=== PATIENT | female | born 1980 | race Caucasian/White ===

== ENCOUNTER 2016-11-27 21:42 | Emergency (ER) | payer OTHER ==
[2016-11-27 21:59] VITALS: BP 113/72; PULSE 75; RESP 16; TEMP 98.3; O2SAT 100
--- NOTE | 2016-11-27 22:25 | ED PDOC ---
HPI: Abdomen Time Seen by Provider: 11/27/16 22:08 Chief Complaint (Nursing): Abdominal Pain Chief Complaint (Provider): abdominal pain History Per: Patient History/Exam Limitations: no limitations Onset/Duration Of Symptoms: Days (1) Current Symptoms Are (Timing): Still Present Location Of Pain/Discomfort: RLQ, Suprapubic Quality Of Discomfort: Cramping Associated Symptoms: denies: Fever, Chills, Nausea, Vomiting, Diarrhea, Urinary Symptoms Additional History Per: Patient Additional Complaint(s): 36 y/o female, approx 17 weeks gestation, presents with right lower abdominal cramping x 1 day. Denies fever, nausea/vomiting, chest pain, changes in bowel movements, vaginal bleeding/discharge, dysuria, hematuria. Abnormal Vaginal Bleeding: No Last Menstral Period: 08/04/16 : 3 Para: 2 Miscarriage: 0 Past Medical History Reviewed: Historical Data, Nursing Documentation, Vital Signs Vital Signs: Last Vital Signs Temp 98.3 F 11/27/16 21:54 Pulse 75 11/27/16 21:54 Resp 16 11/27/16 21:54 BP 113/72 11/27/16 21:54 Pulse Ox 100 11/28/16 00:40 - Medical History PMH: No Chronic Diseases - Surgical History Surgical History: No Surg Hx - Family History Family History: States: Unknown Family Hx - Allergies Allergies/Adverse Reactions: Allergies Allergy/AdvReac Type Severity Reaction Status Date / Time No Known Allergies Allergy Verified 11/27/16 21:54 Review of Systems ROS Statement: Except As Marked, All Systems Reviewed And Found Negative Gastrointestinal: Positive for: Abdominal Pain Physical Exam - Reviewed Nursing Documentation Reviewed: Yes Vital Signs Reviewed: Yes - Physical Exam Appears: Positive for: Well, Non-toxic, No Acute Distress Head Exam: Positive for: ATRAUMATIC, NORMAL INSPECTION, NORMOCEPHALIC Skin: Positive for: Normal Color Eye Exam: Positive for: Normal appearance ENT: Positive for: Normal ENT Inspection Cardiovascular/Chest: Positive for: Regular Rate, Rhythm Respiratory: Positive for: Normal Breath Sounds Gastrointestinal/Abdominal: Positive for: Bowel Sounds, Soft, Tenderness (right lower pelvic, suprapubic. negative psoas, negative obturaor). Negative for: Distended, Guarding, Rebound Back: Positive for: Normal Inspection Extremity: Positive for: Normal ROM Neurologic/Psych: Positive for: Alert, Oriented - Laboratory Results Result Diagrams: 11/27/16 22:24 11/27/16 22:30 - ECG O2 Sat by Pulse Oximetry: 100 - Progress ED Course And Treament: labs urine, u/s EXAM: US After First Trimester, Transabdominal CLINICAL HISTORY: 36 years old, female; Pain; Other: Pelvic; Gestational age or lmp: 08/04/16; ; Additional info: 17 weeks preg, right pelvic cramping TECHNIQUE: Real-time transabdominal obstetrical ultrasound of the maternal pelvis and a second or third trimester with image documentation. COMPARISON: No relevant prior studies available. FINDINGS: Fetus: Single live intrauterine gestation. Heart rate: heart rate of 144 beats per minute. Presentation: Breech. Placenta: Anterior fundal placenta. No placenta previa or abruption. Amniotic fluid: Normal. Anatomy: No gross anomaly is appreciated. BIOMETRICS Gestational age by US: Estimated gestational age of 18 weeks 1 day by measurements. EFW: Estimated weight of 214 g. BPD: 4.1 cm, correlating with 18 weeks 4 days. HC: 14.8 cm, correlating with 18 weeks 0 days. AC: 11.8 cm, correlating with 17 weeks 4 days. FL: 2.7 cm, correlating with 18 weeks 1 day. MATERNAL: Uterus: Few uterine masses, largest measuring 3.6 x 3.1 x 3.8 cm. Cervix: No cervical dilatation or effacement. Adnexa: RIGHT ovary: Normal. LEFT ovary: Not visualized. No adnexal masses. Free fluid: No significant free fluid. IMPRESSION: 1. Single live intrauterine gestation. 2. Probable fibroid uterus. 3. Incidental/non-acute findings are described above. EXAM: US Abdomen Limited, Appendix CLINICAL HISTORY: 36 years old, female; Pain; Other: Rlq; ; Additional info: Attn rlq TECHNIQUE: Real-time ultrasound of the right lower quadrant with image documentation. COMPARISON: No relevant prior studies available. FINDINGS: Appendix: Not visualized. Free fluid: No significant free fluid. Lymph nodes: 2.1 x 0.5 x 0.9 cm RIGHT lower quadrant lymph node. IMPRESSION: 1. Nonvisualization of appendix. 2. Incidental/non-acute findings are described above. On re-eval, patient sleeping; upon awakening states pain stable. Denies nausea/ vomiting, changes in appetite. Case discussed with Dr. Jesus, patients Junior Paralegal; who feels pain related to fibroid uterus. Dr. Jesus recommends discharge with return precautions, and follow up in office. Patient educated on findings, discharged with instructions to follow up OB this week. Patient given strict instructions to return to ED for fever, nausea/vomiting, worsening right lower quadrant pain, or other concerning symptoms. Advised Tylenol PRN pain. Patient/ demonstrate full understanding. Disposition - Clinical Impression Clinical Impression: Abdominal pain during , Uterine fibroid - Patient ED Disposition Is Patient to be Admitted: No Counseled Patient/Family Regarding: Studies Performed, Diagnosis, Need For Followup - Disposition Disposition: Routine/Home Disposition Time: 00:34 Condition: IMPROVED Additional Instructions: Call Dr. Jesus's office tomorrow regarding follow up. Take Tylenol as directed, as needed for pain. Return to ED for fever, nausea/vomiting, worsening right lower pain, or other concerning symptoms. Instructions: Uterine Fibroids (ED), Abdominal Pain in (ED)
[2016-11-27 22:37] LABS: BASO # 0.1 K/uL (0.0-0.2); BASO % 0.6 % (0.0-2.0); EOS # 0.1 K/uL (0.0-0.7); HEMATOCRIT 32.8 % (34.0-47.0); LYMPH # 2.1 K/uL (1.0-4.3); MEAN CELL VOLUME 90.5 fl (81.0-99.0); MEAN CORPUSCULAR HGB CONC 34.2 g/dL (33.0-37.0); MEAN PLATELET VOLUME 9.4 fl (7.2-11.7); MONO # 0.8 K/uL (0.0-0.8); MONO % 5.4 % (0.0-10.0); RED CELL DISTRIBUTION WIDTH 12.7 % (11.5-14.5); WHITE BLOOD COUNT 14.1 K/uL (4.8-10.8)
[2016-11-27 22:44] LABS: RBC URINE 3 /hpf (0-3); URINE BACTERIA FEW (<OCC); URINE BILIRUBIN NEGATIVE (NEGATIVE); URINE BLOOD SMALL (NEGATIVE); URINE COLOR STRAW (YELLOW); URINE GLUCOSE (UA) NEG (Normal); URINE KETONE NEGATIVE (NEGATIVE); URINE LEUKOCYTE ESTERASE NEG Leu/uL (Negative); URINE PROTEIN NEGATIVE (NEGATIVE); URINE UROBILINOGEN 0.2-1.0 mg/dL (0.2-1.0); WBC URINE 1 /hpf (0-5)
[2016-11-27 22:59] LABS: ALB/GLOB RATIO 1.2 (1.0-2.1); ALKALINE PHOSPHATASE 65 U/L (38-126); ALT/SGPT 50 U/L (9-52); AST/SGOT 23 U/L (14-36); BILIRUBIN,TOTAL 0.3 mg/dl (0.2-1.3); BLOOD UREA NITROGEN 10 mg/dl (7-17); CARBON DIOXIDE 21 mmol/L (22-30); CHLORIDE 104 mmol/L (98-107); GFR AFRICAN-AMERICAN > 60; GLUCOSE,RANDOM 98 mg/dL (65-105); POTASSIUM 3.5 MMOL/L (3.6-5.0); SODIUM 136 mmol/l (132-148); TOTAL PROTEIN 6.7 G/DL (6.3-8.2)
--- NOTE | 2016-11-27 23:53 | US ---
EXAM: US Abdomen Limited, Appendix CLINICAL HISTORY: 36 years old, female; Pain; Other: Rlq; ; Additional info: Attn rlq TECHNIQUE: Real-time ultrasound of the right lower quadrant with image documentation. COMPARISON: No relevant prior studies available. FINDINGS: Appendix: Not visualized. Free fluid: No significant free fluid. Lymph nodes: 2.1 x 0.5 x 0.9 cm RIGHT lower quadrant lymph node. IMPRESSION: 1. Nonvisualization of appendix. 2. Incidental/non-acute findings are described above.
--- NOTE | 2016-11-27 23:56 | US ---
EXAM: US After First Trimester, Transabdominal CLINICAL HISTORY: 36 years old, female; Pain; Other: Pelvic; Gestational age or lmp: 08/04/16; ; Additional info: 17 weeks preg, right pelvic cramping TECHNIQUE: Real-time transabdominal obstetrical ultrasound of the maternal pelvis and a second or third trimester with image documentation. COMPARISON: No relevant prior studies available. FINDINGS: Fetus: Single live intrauterine gestation. Heart rate: heart rate of 144 beats per minute. Presentation: Breech. Placenta: Anterior fundal placenta. No placenta previa or abruption. Amniotic fluid: Normal. Anatomy: No gross anomaly is appreciated. BIOMETRICS Gestational age by US: Estimated gestational age of 18 weeks 1 day by measurements. EFW: Estimated weight of 214 g. BPD: 4.1 cm, correlating with 18 weeks 4 days. HC: 14.8 cm, correlating with 18 weeks 0 days. AC: 11.8 cm, correlating with 17 weeks 4 days. FL: 2.7 cm, correlating with 18 weeks 1 day. MATERNAL: Uterus: Few uterine masses, largest measuring 3.6 x 3.1 x 3.8 cm. Cervix: No cervical dilatation or effacement. Adnexa: RIGHT ovary: Normal. LEFT ovary: Not visualized. No adnexal masses. Free fluid: No significant free fluid. IMPRESSION: 1. Single live intrauterine gestation. 2. Probable fibroid uterus. 3. Incidental/non-acute findings are described above.
== END 2016-11-28 00:45 | disposition home or self-care (01) ==
LOC: H.ER 21:42
DX: O26.892 Other specified pregnancy related conditions, second trimester (principal); D25.9 Leiomyoma of uterus, unspecified; Z3A.17 17 weeks gestation of pregnancy

== ENCOUNTER 2017-05-01 13:29 | Inpatient (IN) | payer OTHER ==
[2017-05-01 13:56] VITALS: BMI 29.6
[2017-05-01] MEDS ORDERED: Lactated Ringer's 1,000 ML IV SCH (15:15)
[2017-05-01] MEDS ORDERED: Oxytocin 30 units/LR 500ML 30 U/500 ML BAG IV SCH (15:15)
[2017-05-01 15:29] LABS: BASO # 0.1 K/uL (0.0-0.2); BASO % 0.5 % (0.0-2.0); EOS % 0.2 % (0.0-4.0); HEMATOCRIT 37.6 % (34.0-47.0); LYMPH # 1.3 K/uL (1.0-4.3); LYMPH % 10.5 % (20.0-40.0); MEAN CELL VOLUME 83.6 fl (81.0-99.0); MEAN CORPUSCULAR HEMOGLOBIN 28.2 pg (27.0-31.0); MEAN CORPUSCULAR HGB CONC 33.7 g/dL (33.0-37.0); MEAN PLATELET VOLUME 9.5 fl (7.2-11.7); MONO # 0.5 K/uL (0.0-0.8); MONO % 3.9 % (0.0-10.0); NEUT # 10.6 K/uL (1.8-7.0); NEUT % 84.9 % (50.0-75.0); RED CELL DISTRIBUTION WIDTH 15.8 % (11.5-14.5); WHITE BLOOD COUNT 12.5 K/uL (4.8-10.8)
[2017-05-01] MEDS ORDERED: Fentanyl/Bupivacaine HCl 250 ML EPI ONE (16:24)
--- NOTE | 2017-05-01 20:25 | OBADHP ---
Datetime: 05/01/2017 20:19 Admit Comment, IP Provider: iup at term uneventful course admitted in labor for delivery Pelvic Type - PN: Adequate Extremities - PN: Normal Abdomen - PN: Normal Back - PN: Normal Breast - PN: Normal Lungs - PN: Normal Heart - PN: Normal Thyroid - PN: Normal Neurologic - PN: Normal HEENT - PN: Normal General - PN: Normal Presentation-Admit: Vertex FHR - Baseline A Provider: 140 Membranes, Provider: Intact Contraction Comments Provider: q4min Gestation - Est Wks by US: 39+ Vital Signs Provider: Reviewed; Within Normal Limits IP Chief Complaint: Uterine contractions NICHD Variability Prov Fetus A: Moderate 6-25bpm NICHD Accel Fetus A IP Provider: 10X10 FHR Category Provider Fetus A: Category I NICHD Decel Fetus A IP Provider: None Dilatation, Provider: 5cm Effacement, Provider: 80% Station, Provider: -2 Genitourinary Exam: Normal DTRs - PN: Normal EGA AdmitDate IP: 39.4 IP Adm Impression: Term, intrauterine ; Active labor; Intact Membranes IP Admit Plan: Admit to unit; Initiate labor protocol
--- NOTE | 2017-05-01 20:29 | OBDS ---
MATERNAL INFORMATION Estimated Blood Loss (ml): 250 Maternal Complications: None Provider Comments: delivery of live baby girl with 1nuchal cord small periurithal tears and repair LABOR SUMMARY EDC: 05/04/2017 00:00 No. Babies in Womb: 1 LABOR INFORMATION Onset of Labor: 05/01/2017 10:00 Complete Dilatation: 05/01/2017 18:23 Group B Beta Strep: Positive Steroids Given: None Reason Steroids Not Administered: Not Applicable MEMBRANES Membranes Rupture Method: Artificial Rupture of Membranes: 05/01/2017 17:18 Amniotic Fluid Color: Clear Amniotic Fluid Amount: Moderate Amniotic Fluid Odor: Normal STAGES OF LABOR Stage 1 hrs: 8 Stage 1 min: 23 VAGINAL DELIVERY Episiotomy: None Laceration Extension: N/A Laceration Type: Periurethral Laceration Repair Note: rewpair of tear with 2-0 chromic Sponge Count Correct: Yes Sharps Count Correct: Yes Count Comment: correct
[2017-05-01] MEDS ORDERED: Oxycodone/Acetaminophen 5/325 mg Tab PO PRN ×4 (20:54→22:49)
[2017-05-02 02:50] VITALS: O2SAT 99
[2017-05-02 06:12] LABS: BASO # 0.1 K/uL (0.0-0.2); BASO % 0.4 % (0.0-2.0); EOS % 0.2 % (0.0-4.0); LYMPH # 1.2 K/uL (1.0-4.3); MEAN CELL VOLUME 83.9 fl (81.0-99.0); MEAN CORPUSCULAR HEMOGLOBIN 28.2 pg (27.0-31.0); MEAN CORPUSCULAR HGB CONC 33.6 g/dL (33.0-37.0); MEAN PLATELET VOLUME 9.3 fl (7.2-11.7); MONO % 6.9 % (0.0-10.0); NEUT # 12.7 K/uL (1.8-7.0); NEUT % 84.5 % (50.0-75.0); PLATELET COUNT 159 K/uL (130-400); WHITE BLOOD COUNT 15.1 K/uL (4.8-10.8)
--- NOTE | 2017-05-02 08:20 | OBPPN ---
Datetime: 05/02/2017 08:13 PP Pain Prov: Within normal limits PP Nausea Prov: Denies PP Flatus Prov: Yes PP BM Prov: No PP Breasts Prov: Normal PP Heart Prov: Normal PP Lungs Prov: Normal PP Abdomen/Uterus Prov: Normal PP Lochia Prov: Normal PP Vulva/Perineum Prov: Normal PP CVA Tenderness Prov: Normal PP Extremities Prov: Normal PP Progress Prov: Normal PP Impression Prov: Normal progression PP Plan Prov: Continue present management PP Progress Note Prov: stable ppd1 continue present care IP PP Procedures: None
[2017-05-02 10:39] LABS: LARGE PLATELETS PRESENT; NEUTROPHIL 83 % (42-75); TOTAL CELLS COUNTED 100
--- NOTE | 2017-05-03 10:25 | OBPPN ---
Datetime: 05/03/2017 10:22 PP Pain Prov: Within normal limits PP Nausea Prov: Denies PP Flatus Prov: Yes PP BM Prov: Yes PP Breasts Prov: Normal PP Heart Prov: Normal PP Lungs Prov: Normal PP Abdomen/Uterus Prov: Normal PP Lochia Prov: Normal PP Vulva/Perineum Prov: Normal PP CVA Tenderness Prov: Normal PP Extremities Prov: Normal PP Progress Prov: Normal PP Impression Prov: Normal progression PP Plan Prov: Continue present management PP Progress Note Prov: stable ppd2 dc home today IP PP Procedures: None
--- NOTE | 2017-05-03 10:33 | OBDCSUM ---
Datetime: 05/03/2017 10:25 Discharged to, Provider: Home Follow up at, Provider: [facility] Disch Instr Activity: Bedrest; May be up to bathroom; May be up for meals; May Shower Disch Instr Diet: Regular Discharge Instructions, Provider: Routine instructions given Discharge Diagnosis, Provider: Term Delivered Discharge Time: 05/03/2017 10:25 Follow up in weeks, Provider: 5-6 weeks in office Disch Referrals: None Disch Activity Restrictions: No exercising; No lifting; No driving; Minimize walking; Minimize stair -climbing; No sexual activity; Nothing in vagina - [place], tampons, douche Discharge Comment, Provider: [facility] home today rto 5-6 weeks call office if any problems Contraception after Delivery: Undecided
[2017-05-03 19:18] VITALS: BP 103/72; PULSE 83; RESP 18; TEMP 97.6
== END 2017-05-03 13:00 | disposition home or self-care (01) | DRG 775 ==
LOC: H.EROB2 13:29 → H.L&D 15:05 → H.EROB 22:49 → H.OB/GYN 05-02 15:00
PROVIDERS: ADMIT Specialist; ATTEND Specialist
PROC: 10E0XZZ Delivery of Products of Conception, External Approach (ICD-10-PCS; principal; 2017-05-01)
PROC: 0UQMXZZ Repair Vulva, External Approach (ICD-10-PCS; 2017-05-01)
PROC: 10907ZC Drainage of Amniotic Fluid, Therapeutic from Products of Conception, Via Natural or Artificial Opening (ICD-10-PCS; 2017-05-01)
PROC: 4A1HXCZ Monitoring of Products of Conception, Cardiac Rate, External Approach (ICD-10-PCS; 2017-05-01)
DX: O69.81X0 Labor and delivery complicated by cord around neck, without compression, not applicable or unspecified (principal); O71.82 Other specified trauma to perineum and vulva; O99.820 Streptococcus B carrier state complicating pregnancy; Z37.0 Single live birth; Z3A.39 39 weeks gestation of pregnancy